=== PATIENT | female | born 1975 | race Caucasian/White ===

== ENCOUNTER → 2018-08-08 | Outpatient (CLI) | payer OTHER | LOC: RAD 13:59 | DX: M20.11 Hallux valgus (acquired), right foot (principal) ==

== ENCOUNTER → 2018-11-28 | Outpatient (CLI) | payer OTHER | LOC: RAD 14:56 | DX: S69.91XA Unspecified injury of right wrist, hand and finger(s), initial encounter (principal); X58.XXXA Exposure to other specified factors, initial encounter; Y93.89 Activity, other specified; Y92.89 Other specified places as the place of occurrence of the external cause; Y99.8 Other external cause status ==

== ENCOUNTER → 2019-09-17 | Outpatient (CLI) | payer OTHER | LOC: CAT 08:25 | DX: Z13.6 Encounter for screening for cardiovascular disorders (principal); E78.00 Pure hypercholesterolemia, unspecified; I25.10 Atherosclerotic heart disease of native coronary artery without angina pectoris ==

== ENCOUNTER → 2020-09-09 | Outpatient (CLI) | payer OTHER | LOC: ULTRA 15:05 | PROVIDERS: ATTEND Nurse Practitioner | DX: R22.31 Localized swelling, mass and lump, right upper limb (principal) ==